=== PATIENT | male | born 1960 | race Caucasian/White ===

== ENCOUNTER → 2024-12-08 | Outpatient (CLI) | payer SELFPAY ==
--- NOTE | 2024-12-08 17:26 | CT_ITS ---
PROCEDURE: CHEST WITH CONTRAST 12/08/2024 REASON FOR EXAM: CHEST MASS TECHNIQUE: Prone and supine chest CT with intravenous contrast, high resolution CT (HRCT) protocol. Coronal and Sagittal reconstruction series were provided. CONTRAST: Isovue-350 VOLUME: 100 mL One or more dose reduction techniques were used (e.g., Automated exposure control, adjustment of the mA and/or kV according to patient size, use of iterative reconstruction technique). RADIATION DOSE SUMMARY: CTDlvol: 16.6 mGy DLP: 364 mGycm COMPARISON: None. FINDINGS: Mild right pleural effusion. Enhancing right pleural thickening. Mildly prominent right hilar and mediastinal lymph nodes are noted with the largest measuring 1.2 cm. Minimal left pleural effusion. Passive atelectatic airspace disease of the lower lobes, more prominent on the right side. Normal enhancement of the main pulmonary artery and right and left pulmonary arteries. Normal thoracic aorta and visualized great vessels. There is no demonstrated aortic dissection. Normal heart and pericardium. Normal visualized trachea and bronchi. Moderate diffuse spondylosis. Normal visualized upper abdomen. CT/Chest WITH Contrast IMPRESSION: Coronary artery calcification (CAC) is is present Mild right pleural effusion. Enhancing right pleural thickening. Mildly prominent right hilar and mediastinal lymph nodes are noted with the lar gest measuring 1.2 cm. Minimal left pleural effusion. Passive atelectatic airspace disease of the lower lobes, more prominent on the right side. No definite soft tissue mass of the chest wall is noted. Reading [facility]
== END | disposition home or self-care (01) ==
PROVIDERS: PCP Physician Assistant; Referring Provider Physician Assistant; Visit Provider Physician Assistant
DX: R22.2 Localized swelling, mass and lump, trunk (principal)
CPT/HCPCS: 71260; Q9967